=== PATIENT | female | born 1945 | race African-American/Black ===

== ENCOUNTER 2016-07-02 21:21 | Emergency (ER) | payer MEDICARE, BC ==
[~2016-07-02] VITALS: Ht 154.9 cm; Wt 65.8 kg
[2016-07-02 21:45] VITALS: BP 154/69
[2016-07-02 22:30] VITALS: BP 154/69
--- NOTE | 2016-07-03 03:07 | Emergency Room Report ---
History of Present Illness General Chief Complaint: Eye Problems Source: Patient Present Illness HPI 70-year-old female presents to ED for evaluation. Patient states that starting last night she noticed floaters in her right eye. Started suddenly. Noted some flashes of light initially which lasted for several seconds then resolved. Patient states she is still having floaters in her eye. Patient states she googled this on the Internet and wanted to rule out retinal detachment. Denies any eye pain. Denies any changes in visual acuity. Patient notes having history of floaters in the past. 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 Patient does have a history of cataract in the right eye. No other aggravating or relieving factors. Denies any other associated symptoms Allergies: Coded Allergies: Shrimp (Verified Allergy, Unknown, 07/02/16) Patient History Past Medical History: HTN, GERD Past Surgical History: none Pertinent Family History: none Social History: Denies: alcohol use, drug use, smoking Now: No Immunizations: UTD Reviewed Nursing Documentation: PMH: Agreed, PSxH: Agreed Nursing Documentation-PMH Past Medical History: No History, Except For Hx Hypertension: Yes Hx Gastrointestinal Problems: Yes - GERD Review of Systems All Other Systems: negative except mentioned in HPI Physical Exam Vital Signs Date Time Temp Pulse Resp B/P Pulse Ox O2 Delivery O2 Flow Rate FiO2 07/02/16 21:44 97.9 88 16 154/69 100 Room Air Sp02 EP Interpretation: reviewed, normal General Appearance: no apparent distress, alert, GCS 15, non-toxic Head: normocephalic, atraumatic Eyes: bilateral eye EOMI, bilateral eye PERRL, bilateral eye normal inspection , bilateral eye visual acuity ENT: hearing grossly normal, normal pharynx, no angioedema, normal voice Neck: full range of motion, supple/symm/no masses Respiratory: chest non-tender, lungs clear, normal breath sounds, speaking full sentences Cardiovascular #1: regular rate, rhythm, no edema Cardiovascular #2: 2+ carotid (R), 2+ carotid (L), 2+ radial (R), 2+ radial (L) , 2+ dorsalis pedis (R), 2+ dorsalis pedis (L) Gastrointestinal: normal bowel sounds, non tender, soft, non-distended, no guarding, no rebound Rectal: deferred Genitourinary: normal inspection, no CVA tenderness Musculoskeletal: back normal, gait/station normal, normal range of motion, non- tender Neurologic: alert, oriented x3, responsive, motor strength/tone normal, sensory intact, speech normal Psychiatric: judgement/insight normal, memory normal, mood/affect normal, no suicidal/homicidal ideation Reflexes: 3+ bicep (R), 3+ bicep (L), 3+ tricep (R), 3+ tricep (L), 3+ knee (R) , 3+ knee (L) Skin: normal color, no rash, warm/dry, well hydrated Lymphatic: no adenopathy Medical Decision Making Diagnostic Impression: Primary Impression: Floaters in visual field Qualified Codes: H43.391 - Other vitreous opacities, right eye ER Course 70-year-old female presents to ED complaining of floaters in the right eye Differential-retinal detachment, conjunctivitis,vitreous hemorrhage Patient placed a stretcher. After initial history, physical exam reveals an elderly female in no acute distress. Pupils equal reactive to light. I performed a bedside ultrasound on the right thigh which showed no obvious evidence of or no detachment Reassuring signs of the patient are no change in visual acuity, no pain, no clouding visual araiza and patient having history of floaters previously in the right eye However I do explained to patient that we are not book[employer] librarian and our exam is not comprehensive. I encourage patient to followup with her opthamologist quickly. Patient agrees to plan Diagnoses-floaters in visual field Stable and discharged to home. Followup with ophthalmology. Return to ED symptoms recur or worsen Last Vital Signs Date Time Temp Pulse Resp B/P Pulse Ox O2 Delivery O2 Flow Rate FiO2 07/02/16 22:30 97.9 88 16 154/69 100 Room Air Status: improved Disposition: HOME, SELF-CARE Condition: Stable Patient Instructions: Eye Floaters VINCE COFFEY M.D. Jul 03, 2016 03:07
== END 2016-07-02 22:30 | disposition home or self-care (01) ==
LOC: EMR 21:54
DX: H43.391 Other vitreous opacities, right eye (principal); I10 Essential (primary) hypertension; K21.9 Gastro-esophageal reflux disease without esophagitis; Z91.013 Allergy to seafood
CPT/HCPCS: 99282

== ENCOUNTER 2017-09-01 02:50 | Emergency (ER) | payer MEDICARE, BC ==
[~2017-09-01] VITALS: Ht 157.5 cm; Wt 68.5 kg
--- NOTE | 2017-09-01 03:36 | Emergency Room Report ---
History of Present Illness General Chief Complaint: Wound Recheck/Suture Removal Source: Patient Present Illness HPI This is a resident 72-year-old female with history hypertension. She presents with chief complaint of bleeding from her breast. She had a punch biopsy done today at [facility] surgical center. She has Steri-Strips over the area. She woke up and was soaking of blood on her then. Oozing blood from the wound. No pain. No fever chills but no nausea no vomiting. Allergies: Coded Allergies: Shrimp (Verified Allergy, Unknown, 07/02/16) Patient History Past Medical History: see triage record, old chart reviewed, HTN Past Surgical History: other Pertinent Family History: none Social History: Denies: smoking Now: No Immunizations: other Reviewed Nursing Documentation: PMH: Agreed; PSxH: Agreed Nursing Documentation-PMH Hx Hypertension: Yes Hx Gastrointestinal Problems: Yes - GERD Review of Systems Eye: Denies: eye pain, blurred vision ENT: Denies: ear pain, nose congestion, throat swelling Respiratory: Denies: cough, shortness of breath Cardiovascular: Denies: chest pain, palpitations Gastrointestinal: Denies: abdominal pain, diarrhea, nausea, vomiting Musculoskeletal: Denies: back pain, joint pain Skin: Denies: rash Neurological: Denies: headache, numbness Endocrine: Denies: increased thirst, increased urine Hematologic/Lymphatic: Denies: easy bruising All Other Systems: negative except mentioned in HPI Physical Exam Vital Signs Date Time Temp Pulse Resp B/P (MAP) Pulse Ox O2 Delivery O2 Flow Rate FiO2 09/01/17 02:52 98.2 94 16 139/72 98 Room Air 98.2 Sp02 EP Interpretation: reviewed, normal General Appearance: well appearing, no apparent distress, alert Head: normocephalic, atraumatic Eyes: bilateral eye PERRL, bilateral eye EOMI ENT: hearing grossly normal, normal pharynx Neck: full range of motion, supple, no meningismus Respiratory: chest non-tender, lungs clear, normal breath sounds, other - right breast: On the lateral aspect small puncture wound about 2 mm. There is blood bleeding from it. Cardiovascular #1: regular rate, rhythm, no murmur Gastrointestinal: normal bowel sounds, non tender, no mass, no organomegaly, no bruit, non-distended Musculoskeletal: back normal, gait/station normal, normal range of motion Psychiatric: mood/affect normal Skin: warm/dry Procedures Laceration/Wound Repair Laceration/Wound Repair : Consent: Verbal Wound Location: other - right breast Wound's Depth, Shape: superficial Wound Length (cm): 0 Wound Explored: clean Betadine Prep?: Yes Anesthesia: 1% Lidocaine Volume Anesthetic (ccs): 1 Wound Repaired With: sutures Suture Size/Type: 4:0, other - chromic Number of Sutures: 1 Patient Tolerated: Well Complications: None Medical Decision Making Diagnostic Impression: Primary Impression: Bleeding from wound ER Course Patient with bleeding from her biopsy site. I place a chair and it stopped bleeding. No evidence of infection. Last Vital Signs Date Time Temp Pulse Resp B/P (MAP) Pulse Ox O2 Delivery O2 Flow Rate FiO2 09/01/17 02:52 98.2 94 16 139/72 98 Room Air 98.2 Status: improved Disposition: HOME, SELF-CARE Condition: Stable Patient Instructions: Wound Check Additional Instructions: Follow-up your doctor in 7 days or as scheduled. Return of worse. Hold Pressure if bleeding. ADILENE MANCLILA M.D. Sep 01, 2017 03:36
[2017-09-01 03:40] VITALS: BP 135/71
[2017-09-01 03:46] VITALS: BP 139/72
== END 2017-09-01 03:45 | disposition home or self-care (01) ==
LOC: EMR 03:00
DX: L76.22 Postprocedural hemorrhage of skin and subcutaneous tissue following other procedure (principal); Y84.8 Other medical procedures as the cause of abnormal reaction of the patient, or of later complication, without mention of misadventure at the time of the procedure; Y92.009 Unspecified place in unspecified non-institutional (private) residence as the place of occurrence of the external cause; I10 Essential (primary) hypertension; K21.9 Gastro-esophageal reflux disease without esophagitis; Z91.013 Allergy to seafood
CPT/HCPCS: 99282